=== PATIENT | male | born 1975 | race Caucasian/White ===

== ENCOUNTER 2017-04-11 14:26 | Emergency (ER) | payer BC, OTHER ==
[~2017-04-11] VITALS: Ht 195.6 cm; Wt 89.8 kg
[2017-04-11] MEDS ORDERED: NAPROSYN500 MG PO (16:32)
== END 2017-04-11 17:02 | disposition home or self-care (01) ==
LOC: ED 14:26
DX: S46.811A Strain of other muscles, fascia and tendons at shoulder and upper arm level, right arm, initial encounter (principal); W10.9XXA Fall (on) (from) unspecified stairs and steps, initial encounter
CPT/HCPCS: 73050; 96372; 99283; J1885